=== PATIENT | female | born 1970 | race Caucasian/White ===

== ENCOUNTER → 2016-11-12 | Outpatient (CLI) | payer MEDICAID ==
[~2016-11-12] MED LIST: /CELE20CA PO; /PREG50CA PO; BISAPOW4 PO; BUPR150T2 PO; CYCL10TA3 PO; DOCU10ELUD PO; ERGO4000 PO; GABA250S PO; HYDR2TAB2 PO; MELA3TAB PO; NASA55AE; PRED10TA2 PO; PROC10TA PO; REGUPOW PO; ROPI1TAB PO; TRAZ50TA2 PO; VICO5TA PO
--- NOTE | 2016-11-12 12:16 | REP ---
MR BRAIN WITHOUT CONTRAST: HISTORY: Headaches. Scattered punctate areas of increased signal intensity on T2-weighted images are present in the subcortical white matter. There is no intraparenchymal hemorrhage, infarct, mass or midline shift. The sella turcica is partially empty. The ventricular system is normal in appearance. There is no extracerebral collection. There is no definite inner ear abnormality. The mastoid air cells and sinuses are clear. IMPRESSION: There is scattered punctate areas of increased signal intensity in the subcortical white matter. This is a nonspecific finding, however, can be see in conditions such as migraine. Signed by Stevenson Ziegler MD 11/12/2016 12:17 P
--- NOTE | 2016-11-12 12:39 | REP ---
MR CERVICAL SPINE WITHOUT CONTRAST: HISTORY: Headaches. A congenital block vertebra is present at the C2-3 level. A small central disc protrusion is present the C3-4 level. There is minimal effacement of the thecal sac without spinal cord compression. The C3 neural foramina are patent. A disc bulge is present at the C4-5 level. There is minimal effacement of the thecal sac without spinal cord compression. The C4 neural foramina are patent. A disc bulge is present at the C5-6 level. There is minimal effacement of the thecal sac without spinal cord compression. The C5 neural foramina are patent. A disc bulge is present at the C6-7 level. There is minimal effacement of the thecal sac without spinal cord compression. The C6 neural foramina are patent. There is no other disc bulge or herniation. The remaining neural foramina are patent. A syrinx is present in the spinal cord. The syrinx measures 4 mm in maximal width. The spinal cord is small in size consistent with myelomalacia. The syrinx extends from the C4 level inferior to T5. The innermost extent is not seen. The patient is status post suboccipital craniectomy. The C3-4 through C5-6 intervertebral discs are decreased in height consistent with disc degeneration. Normal signal intensity is present in the cervical vertebral bodies. IMPRESSION: 1. There is cervical spondylosis at the C3-4 through C6-7 levels without spinal cord compression. 2. The patient is status post suboccipital craniectomy. A syrinx is present in the spinal cord. The spinal cord is small in size consistent with myelodysplasia. The inferior most extent of the syrinx is not seen. MR of the thoracic spine may be helpful for further evaluation. Signed by Stevenson Ziegler MD 11/12/2016 12:47 P
== END ==
LOC: M PLARAD 10:16
PROVIDERS: ATTEND Physician Assistant
DX: R51 Headache (principal); M47.892 Other spondylosis, cervical region; M54.2 Cervicalgia